=== PATIENT | male | born 1985 | race Caucasian/White ===

== ENCOUNTER 2019-02-28 13:43 | Emergency (ER) | payer MEDICAID, OTHER ==
[~2019-02-28] VITALS: Ht 182.9 cm; Wt 80.0 kg
[~2019-02-28 13:43] MED LIST: NO HOME MEDS
[2019-02-28 13:53] VITALS: BP 121/71
[2019-02-28] MEDS ORDERED: AMOX-580 PO (14:29)
== END 2019-02-28 14:41 | disposition home or self-care (01) ==
LOC: ER 13:44
DX: K11.20 Sialoadenitis, unspecified (principal); M27.2 Inflammatory conditions of jaws; F32.9 Major depressive disorder, single episode, unspecified; F10.10 Alcohol abuse, uncomplicated; Z86.73 Personal history of transient ischemic attack (TIA), and cerebral infarction without residual deficits; Z88.2 Allergy status to sulfonamides; Z79.899 Other long term (current) drug therapy; Y90.9 Presence of alcohol in blood, level not specified
CPT/HCPCS: 99284

== ENCOUNTER 2020-06-20 19:41 | Emergency (ER) | payer SELFPAY ==
[~2020-06-20] VITALS: Ht 182.9 cm; Wt 90.2 kg
[2020-06-20 19:56] VITALS: BP 114/77
[2020-06-20] MEDS ORDERED: clindamycin 150mg capsule PO ONE (21:20)
[2020-06-20] MEDS ORDERED: CLIN-97 PO (21:21)
== END 2020-06-20 21:49 | disposition home or self-care (01) ==
LOC: ER 19:41
DX: L02.01 Cutaneous abscess of face (principal); F32.9 Major depressive disorder, single episode, unspecified; F17.201 Nicotine dependence, unspecified, in remission; Z86.73 Personal history of transient ischemic attack (TIA), and cerebral infarction without residual deficits; Z72.89 Other problems related to lifestyle; Z88.2 Allergy status to sulfonamides; Z79.2 Long term (current) use of antibiotics
CPT/HCPCS: 99283